=== PATIENT | female | born 1970 | race Caucasian/White ===

== ENCOUNTER 2018-11-11 18:33 | Emergency (ER) | payer MEDICAID ==
[~2018-11-11] VITALS: Ht 160 cm; Wt 106.0 kg
[~2018-11-11 18:33] MED LIST: CETI10CA PO; CETI10TA34 PO; HYDR28OI7 TP; PETR3.5O6 RIGHT EYE; PRED20TA PO; PREN1CAP12 ODT
[2018-11-11 18:36] VITALS: Ht 160 cm; Wt 106.0 kg
[2018-11-11] MEDS ORDERED: POLY10DR19 RIGHT EYE (19:45)
[2018-11-11] MEDS ORDERED: IBUP-1542 PO (19:58)
[2018-11-11] MEDS ORDERED: PRED20TA PO (19:58)
--- NOTE | 2018-11-11 20:03 | ERD ---
ER Documentation Chief Complaint Chief Complaint right eye redness/pain x 2 days. also c/o headache HPI 48-year-old female presents to ED complaining of right eye redness and pain x2 days. She reports sudden onset of the right eye pain. She states that he radiates to the back of her head she has tried rywe-afx-deudobb eyedrops and lubricant without any relief of her pain. She also adds that it itches. She states that the pain is 9 out of 10 intensity, is constant and characterized as throbbing pain. She denies history of similar events. She states nothing makes her symptoms better or worse. Past medical history of hypertension, prediabetes, unknown thyroid disorder ROS All systems reviewed and are negative except as per history of present illness. Medications Home Meds Active Scripts Ibuprofen* (Motrin*) 600 Mg Tab, 600 MG PO Q6H PRN for PAIN AND OR ELEVATED TEMP, #30 TAB Prov:RICARDO JOHNSON PA-C 11/11/18 Prednisone* (Prednisone*) 20 Mg Tab, 60 MG PO DAILY for 5 Days, TAB Prov:RICARDO JOHNSON PA-C 11/11/18 Polymyxin B Sulfate-TMP* (Polymyxin B-TMP Eye Drops*) 10 Ml Drops, 1 DROP RIGHT EYE QID for 7 Days, EA Prov:RICARDO JOHNSON PA-C 11/11/18 Cetirizine Hcl* (Zyrtec*) 10 Mg Capsule, 10 MG PO DAILY, #20 TAB.CHEW Prov:LISA PAGAN MD 06/02/15 Petrolat,Wht/Min Oil/Sod Chl* (Artificial Tears* Oint) 3.5 gm Oint Opht, 1 APPLIC RIGHT EYE QID PRN for DRY EYES for 10 Days, EA Prov:LISA PAGAN MD 06/02/15 Hydrocortisone Acetate (Hydrocortisone) 30 Gm Oint..gm., 30 GM TP TID for 7 Days 2.5% Prov:LISA PAGAN MD 10/02/14 Prednisone* (Prednisone*) 20 Mg Tab, 40 MG PO DAILY for 5 Days, TAB Prov:LISA PAGAN MD 10/02/14 Cetirizine Hcl* (Cetirizine Hcl*) 10 Mg Tab.chew, 10 MG PO DAILY, #14 TAB.CHEW Prov:LISA PAGAN MD 10/02/14 Reported Medications No.25/Iron/Fa #6/Dha (PRENA1 SOFTGEL) 1 Each Capsule, 1 EACH ODT DAILY 03/23/13 Allergies Allergies: Coded Allergies: No Known Allergy (Unverified , 10/02/14) PMhx/Soc History of Surgery: Yes ( ) Anesthesia Reaction: No Hx Neurological Disorder: No Hx Respiratory Disorders: No Hx Cardiac Disorders: Yes (htn ) Hx Psychiatric Problems: No Hx Miscellaneous Medical Probl: Yes ( X 1) Hx Alcohol Use: No Hx Substance Use: No Hx Tobacco Use: No Smoking Status: Never smoker FmHx Family History: No diabetes Physical Exam Vitals Vital Signs Date Temp Pulse Resp B/P (MAP) Pulse Ox O2 O2 Flow FiO2 Time Delivery Rate 11/11/18 98.8 78 18 138/86 97 Room Air 20:05 (103) 11/11/18 98.9 88 18 170/85 99 18:36 (113) Physical Exam Const: No acute distress Head: Atraumatic Eyes: Right eye: very red, normal visual acuity, very slight pain with EOMs, pain with pressing on eye, PERRLA ENT: Normal External Ears, Nose and Mouth. Neck: Full range of motion. Resp: Clear to auscultation bilaterally Cardio: Regular rate and rhythm, Abd: Soft, non tender, non distended. Back: No midline or flank tenderness Ext: No cyanosis, or edema Neur: Awake and alert Psych: Normal Mood and Affect Procedures/MDM ED COURSE: The patient was stable throughout ED course. I kept the patient informed of laboratory and diagnostic imaging results throughout the ED course. PROCEDURES: Tonopen MEDICATIONS GIVEN: [None.] MEDICAL DECISION MAKING: Patient is a 48-year-old female complaining of right eye pain x2 to 3 days. H&P and other data not c/w emergent process (eg. glaucoma, keratitis, globe perf, corneal ulcer). On physical exam patient had no changes visual acuity. Eyes were PERRLA bilaterally. Her right eyeball was very red and tender. Iron-Pen procedure was done to measure eye pressure showing readings of 28, 22, and 21 mmHg. After consulting with attending physician Dr. Curry, she recommend that I discharge the patient with steroids and eyedrops and told the patient to return in 2 days for recheck. Patient agreed to the plan. Patient was given strict return to ED precautions if symptoms persist or worsen. vital signs were reviewed. Patient is afebrile. Patient was not hypoxic. Patient was hemodynamically stable. Patient was told to follow up with primary care for further care and management. PRESCRIPTION: Prednisone, Motrin, Polymixin B DISCHARGE: At this time, patient is stable for discharge and outpatient management. I have instructed the patient to follow-up with his/her primary care physician in 1-2 days. I have discussed with the patient the possibility of needing to see a specialist for further workup and imaging studies if symptoms persist. I have instructed the patient to promptly return to the ER for any new or worsening symptoms including increased pain, fever, nausea, vomiting, weakness or LOC. The patient expressed understanding of and agreement with this plan. All questions were answered. Home care instructions were provided. Disclaimer: Inadvertent spelling and grammatical errors are likely due to EHR/dictation software use and do not reflect on the overall quality of patient care. Also, please note that the electronic time recorded on this note does not necessarily reflect the actual time of the patient encounter. 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 FURTHER EVALUATION AND TREATMENT OF YOUR CONDITION CAN WAIT UNTIL YOU ARE SEEN IN YOUR DOCTORS OFFICE WITHIN THE NEXT 1-2 DAYS. IT IS YOUR RESPONSIBILITY TO MAKE AN APPOINTMENT FOR FOLOW-UP CARE. IF YOU HAVE A PRIMARY DOCTOR --you should call your primary doctor and schedule an appointment IF YOU DO NOT HAVE A PRIMARY DOCTOR YOU CAN CALL OUR PHYSICIAN REFERRAL HOTLINE AT IF YOU CAN NOT AFFORD TO SEE A PHYSICIAN YOU CAN CHOSE FROM THE FOLLOWING COUNTS INCLUDE 234 BEDS AT THE [facility] CL[facility]ICS [facility] [address] [facility] [address] [facility] [address] [facility] [address] [facility] [facility] [address] [facility]. [facility] [address] [facility]. [facility] YOU HAVE RECEIVED A MEDICAL SCREENING EXAM AND THE RESULTS INDICATE THAT YOU DO NOT HAVE A CONDITION THAT REQUIRES URGENT TREATMENT IN THE EMERGENCY DEPARTMENT. FURTHER EVALUATION AND TREATMENT OF YOUR CONDITION CAN WAIT UNTIL YOU ARE SEEN IN YOUR DOCTORS OFFICE WITHIN THE NEXT 1-2 DAYS. IT IS YOUR RESPONSIBILITY TO MAKE AN APPOINTMENT FOR FOLOW-UP CARE. IF YOU HAVE A PRIMARY DOCTOR --you should call your primary doctor and schedule and appointment IF YOU DO NOT HAVE A PRIMARY DOCTOR YOU CAN CALL OUR PHYSICIAN REFERRAL HOTLINE AT . IF YOU CAN NOT AFFORD TO SEE A PHYSICIAN YOU CAN CHOSE FROM THE FOLLOWING [facility] INSTITUTIONS: [facility] [id number] [place] [id number] [facility] [address] [place], [place] [id number] [place] [address] [address] [place] [address] [facility] Hours: Mon - Fri 9:00 AM - 5:00 PM Additional Instructions: Return back to this ED in 2 days for recheck. Follow up with opthamologist claritza Llame al doctor [place] y anne viviana PARAMJIT PARA DENTRO DE 1-2 SALINAS.Dgale a la secretaria que nosotros le instruimos hacer esta paramjit.Avise o llame si mar condicin se empeora antes de la paramjit. Regresa aqui si peor o no mejor. RICARDO JOHNSON PA-C Nov 11, 2018 20:03
[2018-11-11 20:05] VITALS: BP 138/86; PULSE 78; RESP 18
== END 2018-11-11 20:10 | disposition home or self-care (01) ==
LOC: FTE 18:33
DX: H15.001 Unspecified scleritis, right eye (principal); I10 Essential (primary) hypertension
CPT/HCPCS: 99283